=== PATIENT | female | born 1950 | race African-American/Black ===

== ENCOUNTER → 2020-11-05 | Outpatient (CLI) | payer BC ==
[~2020-11-05] MED LIST: NAPROSYN500 MG PO; NOHOMEMEDICATIONS; ULTRAM 50MG TAB50 MG PO
== END ==
LOC: LAB 11:55
PROVIDERS: ATTEND Internal Medicine Pulmonary Disease
DX: R05 Cough (principal); R06.2 Wheezing; R50.9 Fever, unspecified; Z20.822 Contact with and (suspected) exposure to COVID-19

== ENCOUNTER → 2020-11-11 | Outpatient (CLI) | payer BC | LOC: RAD 13:07 | PROVIDERS: ATTEND Internal Medicine Pulmonary Disease | DX: I51.7 Cardiomegaly (principal); D86.0 Sarcoidosis of lung ==